=== PATIENT | female | born 1995 | race Caucasian/White ===

== ENCOUNTER 2016-05-28 21:53 | Emergency (ER) | payer OTHER ==
[~2016-05-28] VITALS: Ht 162.6 cm; Wt 53.0 kg
[~2016-05-28 21:53] MED LIST: BACTRIM,SEPT1 TABLET PO; FLEET ENEMA-AD118 ML PR; FLEXERIL10 MG PO; MILK OF MAGN PO; RANITIDINE HCL150 M1 PO; SPRINTEC1 EACH PO; TYLENOL WITH C1 EACH PO
[2016-05-28 22:20] LABS: HEMATOCRIT 36.9 % (36.0-46.0); MCH 29.9 PG (29.0-34.0); MCHC 34.4 G/DL (30.0-36.0); MCV 86.8 FL (83-99); RBC DIS.WIDTH-CV 11.9 % (11.8-14.6); RBC DIS.WIDTH-SD 37.7 % (39-53); RED BLOOD COUNT 4.25 M/uL (3.80-5.20); WHITE BLOOD COUNT 9.6 K/uL (4.1-10.2)
[2016-05-28 22:31] LABS: CHLORIDE 107 mEq/L (99-109); SODIUM 141 mEq/L (136-147)
[2016-05-28 22:34] LABS: GLUCOSE 90 mg/dL (70-99)
[2016-05-28 22:35] LABS: ANION GAP 9 MEQ/L (2-14)
[2016-05-28 22:37] LABS: ALKALINE PHOSPHATASE 94 IU/L (3-129); GFR ESTIMATE (CALCULATED) > 59 mL/min/
[2016-05-28 22:39] LABS: UREA NITROGEN (BUN) 12 mg/dL (9-23)
[2016-05-28 22:46] LABS: QUANTITATIVE HCG < 4.0 MIU/ML
[2016-05-28 22:48] LABS: ADD MIUA? YES; BILIRUBIN NEGATIVE; BLOOD NEGATIVE; COLOR YELLOW ((YELLOW)); GLUCOSE (STRIP) NEGATIVE; KETONES NEGATIVE; LEUKOCYTES TRACE; NITRITE NEGATIVE; PROTEIN (STRIP) 30; SPECIFIC GRAVITY 1.019 (1.000-1.030)
[2016-05-28 23:37] LABS: RED BLOOD CELLS 0-5 /HPF (0-5)
[2016-05-28 23:38] LABS: BACTERIA 2+ /HPF; EPITHELIAL CELLS 1+ /HPF; MUCUS 1+ /LPF; UCUL ADDED? YES
[2016-05-28 23:47] LABS: HEMATOLOGY COMMENT 1 SMEAR COMPATIBLE; MEAN PLAT.VOLUME 12.4 uM^3 (9.5-12.4); PLAT.SUFFICIENCY ADEQUATE; PLATELET COUNT 202 K/uL (156-360)
[2016-05-29 02:55] VITALS: BP 118/66
== END 2016-05-29 02:56 | disposition home or self-care (01) ==
LOC: EME 21:53
DX: N83.202 Unspecified ovarian cyst, left side (principal); R10.813 Right lower quadrant abdominal tenderness; M79.604 Pain in right leg; R11.2 Nausea with vomiting, unspecified
CPT/HCPCS: 74177; 76705; 76856; 80053; 81003; 84702; 85027; 87077; 87086; 87186; 99281; 99284; J1885; J2270; J7030

== ENCOUNTER 2017-02-06 17:40 | Emergency (ER) | payer OTHER ==
[~2017-02-06] VITALS: Ht 162.6 cm; Wt 55.4 kg
[2017-02-06 19:14] LABS: ADD MIUA? YES; BILIRUBIN NEGATIVE; BLOOD NEGATIVE; COLOR YELLOW ((YELLOW)); GLUCOSE (STRIP) NEGATIVE; KETONES NEGATIVE; LEUKOCYTES NEGATIVE; NITRITE NEGATIVE; PROTEIN (STRIP) NEGATIVE; SPECIFIC GRAVITY 1.023 (1.000-1.030)
[2017-02-06 19:21] LABS: HEMATOCRIT 36.1 % (36.0-46.0); MCHC 34.6 G/DL (30.0-36.0); MCV 86.6 FL (83-99); RBC DIS.WIDTH-CV 11.8 % (11.8-14.6); RBC DIS.WIDTH-SD 37.2 % (39-53); RED BLOOD COUNT 4.17 M/uL (3.80-5.20); WHITE BLOOD COUNT 7.4 K/uL (4.1-10.2)
[2017-02-06 19:24] LABS: BACTERIA RARE /HPF; EPITHELIAL CELLS 1+ /HPF; MUCUS 1+ /LPF; RED BLOOD CELLS 0-5 /HPF (0-5); WHITE BLOOD CELLS 0-5 /HPF (0-5)
[2017-02-06 19:28] LABS: CHLORIDE 110 mEq/L (99-109); SODIUM 141 mEq/L (136-147)
[2017-02-06 19:30] LABS: GLUCOSE 96 mg/dL (70-99)
[2017-02-06 19:31] LABS: ANION GAP 6 MEQ/L (2-14)
[2017-02-06 19:32] LABS: TOTAL BILIRUBIN 0.7 mg/dL (0.0-1.0)
[2017-02-06 19:33] LABS: ALKALINE PHOSPHATASE 69 IU/L (3-129)
[2017-02-06 19:34] LABS: GFR ESTIMATE (CALCULATED) > 59 mL/min/
[2017-02-06 19:35] LABS: UREA NITROGEN (BUN) 13 mg/dL (9-23)
[2017-02-06 19:44] LABS: QUANTITATIVE HCG < 4.0 MIU/ML
[2017-02-06 19:56] LABS: MEAN PLAT.VOLUME 12.8 uM^3 (9.5-12.4); PLATELET COUNT 177 K/uL (156-360)
[2017-02-06 19:57] LABS: PLAT.SUFFICIENCY LOW NORMAL
[2017-02-06] MEDS ORDERED: NORCO 5/3251 TABLET PO (21:12)
[2017-02-06] MEDS ORDERED: ZOFRAN8 MG PO (21:12)
[2017-02-06 21:54] VITALS: BP 112/81
== END 2017-02-06 21:56 | disposition home or self-care (01) ==
LOC: EME 17:40
PROVIDERS: Physician Assistant
DX: R10.84 Generalized abdominal pain (principal); M54.9 Dorsalgia, unspecified; R35.0 Frequency of micturition; R53.83 Other fatigue
CPT/HCPCS: 74177; 80053; 81003; 84702; 85027; 87077; 87086; 87186; 99281; 99285; J2270; J7040